=== PATIENT | male | born 1965 | race Two or more races ===

== ENCOUNTER 2022-08-08 12:26 | Emergency (ER) | payer OTHER ==
[~2022-08-08] VITALS: Ht 170.2 cm; Wt 74.8 kg
--- NOTE | 2022-08-08 13:00 | NUR ---
BIB C/O BACK AND HEAD PAIN S/P FALLING OFF "6 FOOT LADDER" 30 MINS AGO. PT DENIES LOC. AMBULATORY, PLACED IN BED, AAOX4, IN PAIN 12/09 PS.
[2022-08-08] MEDS ORDERED: KETOROLAC TROMETHAMINE INJ 30 MG/ML VIAL ONE (13:15)
[2022-08-08] MEDS ORDERED: CYCLOBENZAPRINE 10 MG TABLET ONE (13:15)
[2022-08-08] MEDS ORDERED: CYCLOBENZAPRINE 10 MG TABLET PO ONE (13:30)
[2022-08-08] MEDS ORDERED: KETOROLAC TROMETHAMINE INJ 30 MG/ML VIAL IM ONE (13:30)
--- NOTE | 2022-08-08 13:35 | NUR ---
PATIENT TAKEN TO CT VIA [facility]
[2022-08-08] MEDS ORDERED: KETO10TA2 PO (14:38)
[2022-08-08] MEDS ORDERED: CYCL5TAB PO (14:38)
--- NOTE | 2022-08-08 14:51 | NUR ---
Patient discharged to home in stable condition. Written and verbal after care instructions given. Patient verbalizes understanding of instruction.
[2022-08-08 14:52] VITALS: BP 135/85
== END 2022-08-08 14:50 | disposition home or self-care (01) ==
LOC: ER 12:26
DX: S00.03XA Contusion of scalp, initial encounter (principal); Z79.899 Other long term (current) drug therapy; W11.XXXA Fall on and from ladder, initial encounter; Y93.89 Activity, other specified; Y92.89 Other specified places as the place of occurrence of the external cause; Y99.8 Other external cause status
CPT/HCPCS: 99285; 72125; 96372; 70450; 72128; J1885